=== PATIENT | female | born 1980 | race Caucasian/White ===

== ENCOUNTER 2018-03-06 16:45 | Emergency (ER) | payer BC, OTHER ==
--- NOTE | 2018-03-06 17:36 | EDM.PDOC ---
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 and had a sharp pain in her R lower back continued to work, not able to bend over took ibuprofen 800 mg at 8 AM, also APAP, still with pain, not able to work tonight no PCP, has gone to [facility] in [facility] on occasion states her hands are numb, that the pain shoots up her back and down her L leg, that her leg is numb denies previous injury to back other than when she rolled her 4-patel 05/31 - Related Data Allergies Allergy/AdvReac Type Severity Reaction Status Date / Time Penicillins Allergy Vomiting Verified 03/06/18 17:08 Home Meds: Home Meds Cyclobenzaprine HCl 10 mg PO TID PRN #15 tablet 03/06/18 [Rx] Past Medical History - Past Health History Medical/Surgical History: Denies Medical/Surgical History Gastrointestinal History: Reports: Other (See Below) Other Gastrointestinal History: stomach CA, Musculoskeletal History: Reports: Fracture, Other (See Below) Other Musculoskeletal History: fx R toe, R shoulder pain Neurological History: Reports: Migraines Endocrine/Metabolic History: Reports: Obesity/BMI 30+ Oncologic (Cancer) History: Reports: Leukemia, Other (See Below) Other Oncologic History: form of leukemia, stomach CA. Has portion of sm intestine & stomach removed. - Past Surgical History GI Surgical History: Reports: Colon, EGD, Small Bowel Social & Family History - Caffeine Use Caffeine Use: Reports: Coffee, Soda ED ROS GENERAL - Review of Systems Review Of Systems: See Below Constitutional: Reports: No Symptoms HEENT: Reports: No Symptoms Respiratory: Reports: No Symptoms Cardiovascular: Reports: No Symptoms Endocrine: Reports: No Symptoms GI/Abdominal: Reports: No Symptoms : Reports: No Symptoms Musculoskeletal: Reports: Back Pain Skin: Reports: No Symptoms Neurological: Reports: No Symptoms Psychiatric: Reports: No Symptoms Hematologic/Lymphatic: Reports: No Symptoms Immunologic: Reports: No Symptoms ED EXAM,LOWER BACK PAIN/INJURY - Physical Exam Exam: See Below Exam Limited By: No Limitations General Appearance: Alert, WD/WN, Mild Distress Respiratory/Chest: No Respiratory Distress Cardiovascular: Regular Rate, Rhythm Back Exam: Other (1+ tender at R iliac crest and R SI joint, no tender over l- spine, some guarding paraverterbral muscles without spasm, walks a little stiffly, 2+ DTRs at patella and Achilles b/l, great toe extension 5/5 b/l, LT intact b/l) Extremities: Normal Inspection, Normal Range of Motion, Non-Tender Neurological: Alert, Normal Mood/Affect, Normal Dorsiflexion, CN II-XII Intact, Normal Reflexes, No Motor/Sensory Deficits, Oriented x 3 Psychiatric: Normal Affect Skin Exam: Warm, Dry, Intact, Normal Color, No Rash Lymphatic: No Adenopathy Course - Orders/Labs/Meds Orders: Active Orders 24 hr Category Date Time Status Lumbar Spine 2 or 3V [CR] Stat Exams 03/06/18 17:29 Ordered Meds: Medications Discontinued Medications Generic Name Dose Route Start Last Admin Trade Name Evansq PRN Reason Stop Dose Admin Cyclobenzaprine HCl 10 mg 03/06/18 17:29 03/06/18 17:40 Flexeril PO 03/06/18 17:30 10 mg ONETIME ONE Administration Ketorolac Tromethamine 60 mg 03/06/18 17:29 03/06/18 17:38 Toradol IM 03/06/18 17:30 60 mg ONETIME ONE Administration - Re-Assessments/Exams Free Text/Narrative Re-Assessment/Exam: 03/06/18 18:37 XR l-spine shows minimal spurring, otherwise WNL injury actually to low back, no spine Departure - Departure Time of Disposition: 18:37 Disposition: Home, Self-Care 01 Condition: Good Clinical Impression: Low back strain - Discharge Information Prescriptions: Cyclobenzaprine HCl 10 mg PO TID PRN #15 tablet PRN Reason: Spasms Instructions: Low Back Strain, Low Back Sprain Rehab-SportsMed Referrals: PCP,None [Primary Care Provider] - Forms: ED Department Discharge, ED Return to Work/School Form Additional Instructions: For pain and inflammation, take ibuprofen 200 mg 4 tabs and acetaminophen 500 mg 2 tabs 3 times a day for 7 days, longer if needed. Use ice for 10 minutes 4 times a day for 2 days. For spasm, as needed, take cyclobenzaprine 10 mg 1 tab 3 times a day. Sleep on a firm mattress. Return to work in 4 days. See your doctor in 5 days. - My Orders Last 24 Hours: My Active Orders 03/06/18 17:29 Lumbar Spine 2 or 3V [CR] Stat - Assessment/Plan Last 24 Hours: My Active Orders 03/06/18 17:29 Lumbar Spine 2 or 3V [CR] Stat
[2018-03-06] MEDS: Ketorolac 60 MG/2 ML SDV IM ONE (17:38)
[2018-03-06] MEDS: Cyclobenzaprine 10 MG Tab PO ONE (17:40)
[2018-03-06 19:46] VITALS: BP 127/80
--- NOTE | 2018-03-08 11:18 | CR ---
INDICATION: Pain in right lower back, no history of trauma. LUMBOSACRAL SPINE: Three views of the lumbosacral spine were obtained. Overlying artifacts are noted. Mild hypertrophic degenerative changes are noted anteriorly off vertebral bodies L3-4, L4-5 but only minimally at L1-2. Vertebral body and disk heights appear to be fairly well-maintained. Bone density appeared to be normal. Pedicles appear to be intact. IMPRESSION: Essentially normal lumbosacral spine, except to note some mild osteoarthritic spurring. MTDD
== END 2018-03-06 18:47 | disposition home or self-care (01) ==
LOC: FB.ED 16:45
DX: S39.012A Strain of muscle, fascia and tendon of lower back, initial encounter (principal); E66.9 Obesity, unspecified; Y99.0 Civilian activity done for income or pay; Z88.0 Allergy status to penicillin; X50.9XXA Other and unspecified overexertion or strenuous movements or postures, initial encounter; Z68.41 Body mass index [BMI] 40.0-44.9, adult
CPT/HCPCS: 72100; 96372; 99283; A9270; J1885

== ENCOUNTER 2018-05-19 22:22 | Emergency (ER) | payer BC, OTHER ==
[2018-05-20 08:10] VITALS: BP 105/62
--- NOTE | 2018-05-20 10:17 | ER ---
DATE SEEN: 05/19/2018 HISTORY OF PRESENT ILLNESS: This 37-year-old woman comes in with history of "playing with a friend and messing around with a dog," and her left foot was half on the sidewalk, half on a rock, and rolled. She is not sure if she had inversion or eversion ankle sprain, but describes as apparently significant 6/10 intensity. She was overweight. Has moderate obesity, 200+ pounds. Works at [employer]. The event occurred at approximately 1600 hours today. She was unable to go back to work until she is cleared by [employer]. PAST MEDICAL HISTORY: Significant for fracture of right big toe, shoulder strain, left wrist sprain, backache, and low back strain. No diabetes, heart disease, high blood pressure, asthma, or other serious illnesses. CURRENT MEDICATIONS: None. She has used cyclobenzaprine in the past, not using it currently, which was for low back pain. ALLERGIES: To penicillin. SOCIAL HISTORY: Nonsmoker. PHYSICAL EXAMINATION: GENERAL: Alert, pleasant woman, in mild distress. VITAL SIGNS: See nurse's note. HEENT: PERRLA intact. Pharynx without abnormality. LUNGS: Clear, without rales, rhonchi, or wheezes. HEART: S1 and S2. No murmur. ABDOMEN: Soft. No guarding. No abdominal discomfort. Moderately increased abdominal girth. No overhang of fatty apron. EXTREMITIES: Left ankle marked tenderness at the lateral medial malleolus. Mild swelling. Distal fibula moderately tender with lower 20%. No crepitus. No deformity noted. Drawer sign negative. Palpation of 5th metatarsal nontender. The patient has pain with standing and walking. DIAGNOSTIC STUDIES: X-ray does not reveal a fracture. Two years ago, had a similar ankle sprain. It was negative at that time too. She has bony spurs noted on the calcaneus. ASSESSMENT: Left ankle sprain. PLAN: Ankle air splint. Gradually and progressively increase activity as tolerated. Off work for 2 days. Return to her doctor and be cleared on May 22. Elevate her ankle above her heart to decrease the swelling and minimize walking. The patient was seen at 1635 hours. /[id number] LS/MODL
--- NOTE | 2018-05-21 11:35 | CR ---
INDICATION: Left ankle sprain. LEFT ANKLE: Three views of the left ankle revealed soft tissue swelling overlying the lateral malleolus. Hypertrophic degenerative changes are noted at the lateral malleolus, suggesting mild degree of osteoarthritis, possibly posttraumatic type, with similar appearance at the medial malleolus also. There is very minimal asymmetry of the ankle mortise, being slightly wider in the lateral portion - the ankle mortise is slightly asymmetrical. This could be on the basis of lateral ligamental strain but should be correlated clinically. MRI or stress views may be helpful for further evaluation in that regard. A definite acute fracture or dislocation was not identified. Moderate sized plantar and posterior calcaneal spurs are also noted. Degenerative changes are also suggested at the calcaneocuboid and navicular multangular joints of mild degree. IMPRESSION: 1. No acute fracture or dislocation. 2. There may be a strain of lateral ligaments with very slight widening of the lateral ankle mortise. 3. 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 4. Calcaneal spurs. BERTRAM
== END 2018-05-19 23:45 | disposition home or self-care (01) ==
LOC: FB.ED 22:22
DX: S93.402A Sprain of unspecified ligament of left ankle, initial encounter (principal); X50.9XXA Other and unspecified overexertion or strenuous movements or postures, initial encounter; Z88.0 Allergy status to penicillin
CPT/HCPCS: 73610-LT; 99283

== ENCOUNTER 2019-07-31 13:43 | Emergency (ER) | payer BC ==
[2019-07-31] MEDS ORDERED: Sodium Chloride 0.9% 10 ML Syringe FLUSH PRN (14:17)
[2019-07-31] MEDS ORDERED: Sodium Chloride 0.9% 1,000 ML IV ONE (14:18)
[2019-07-31] MEDS ORDERED: Ketorolac 30 MG/ML SDV IVPUSH ONE (14:18)
--- NOTE | 2019-07-31 14:24 | EDM.PDOC ---
ED HPI GENERAL MEDICAL PROBLEM - General Chief Complaint: Back Pain or Injury Stated Complaint: POSSIBLE KIDNEY STONES Time Seen by Provider: 07/31/19 14:20 Source of Information: Reports: Patient History Limitations: Reports: No Limitations - History of Present Illness INITIAL COMMENTS - FREE TEXT/NARRATIVE: Patient presents with worsening non-radiating right lower back pain x 1 week. Denies injury, but may have slept on the couch "wrong" the day prior. No h/o kidney stones. Had N/V x 1 yesterday. Duration: Week(s): (1) - Related Data Allergies Allergy/AdvReac Type Severity Reaction Status Date / Time Penicillins Allergy Cannot Verified 07/31/19 15:48 Remember Past Medical History HEENT History: Reports: Impaired Vision Gastrointestinal History: Reports: Other (See Below) Other Gastrointestinal History: Stomach CA. Musculoskeletal History: Reports: Fracture, Other (See Below) Other Musculoskeletal History: Fx R toe. R shoulder pain. 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 - Past Surgical History GI Surgical History: Reports: Colon, EGD, Small Bowel Social & Family History - Family History Family Medical History: Noncontributory - Caffeine Use Caffeine Use: Reports: Coffee, Soda ED ROS GENERAL - Review of Systems Review Of Systems: ROS reveals no pertinent complaints other than HPI. ED EXAM,LOWER BACK PAIN/INJURY - Physical Exam Exam: See Below Exam Limited By: No Limitations General Appearance: Alert, WD/WN, No Apparent Distress Ears: Normal External Exam Nose: Normal Inspection Throat/Mouth: No Airway Compromise Head: Atraumatic, Normocephalic Neck: Full Range of Motion Respiratory/Chest: No Respiratory Distress, Lungs Clear, Normal Breath Sounds Cardiovascular: Regular Rate, Rhythm, No Murmur GI/Abdominal: Soft, Non-Tender, No Distention Back Exam: Paraspinal Tenderness (right lumbar). No: CVA Tenderness (R), CVA Tenderness (L) Extremities: Normal Range of Motion Neurological: Alert, Normal Mood/Affect Skin Exam: Warm, Dry Course - Vital Signs Last Recorded V/S: Last Vital Signs Temp 36.6 C 07/31/19 13:55 Pulse 66 07/31/19 13:55 Resp 18 07/31/19 13:55 BP 104/61 07/31/19 13:55 Pulse Ox 98 07/31/19 13:55 - Orders/Labs/Meds Orders: Active Orders 24 hr Category Date Time Status Abdomen Pelvis wo Cont [CT] Stat Exams 07/31/19 14:19 Taken Sodium Chloride 0.9% [Saline Flush] Med 07/31/19 14:17 Active 10 ml FLUSH ASDIRECTED PRN Saline Lock Insert [OM.PC] Routine Oth 07/31/19 14:17 Ordered Medication Orders Sodium Chloride (Saline Flush) 10 ml FLUSH ASDIRECTED PRN PRN Reason: Keep Vein Open Labs: Laboratory Tests 07/31/19 07/31/19 07/31/19 Range/Units 13:50 13:50 14:32 WBC 9.2 (4.5-12.0) X10-3/uL RBC 4.76 (3.23-5.20) x10(6)uL Hgb 14.8 (11.5-15.5) g/dL Hct 43.7 (30.0-51.3) % MCV 91.7 (80-96) fL MCH 31.0 (27.7-33.6) pg MCHC 33.8 (32.2-35.4) g/dL RDW 12.5 (11.5-15.5) % Plt Count 296 (125-369) X10(3)uL MPV 8.9 (7.4-10.4) fL Neut % (Auto) 61.0 (46-82) % Lymph % (Auto) 29.3 (13-37) % Sanborn % (Auto) 7.4 (4-12) % Eos % (Auto) 1 (1.0-5.0) % Baso % (Auto) 1 (0-2) % Neut # (Auto) 5.6 (1.6-8.3) # Lymph # (Auto) 2.7 (0.6-5.0) # Sanborn # (Auto) 0.7 (0.0-1.3) # Eos # (Auto) 0.1 (0.0-0.8) # Baso # (Auto) 0.1 (0.0-0.2) # Sodium (135-145) mmol/L Potassium (3.5-5.3) mmol/L Chloride (100-110) mmol/L Carbon Dioxide (21-32) mmol/L BUN (7-18) mg/dL Creatinine (0.55-1.02) mg/dL Est Cr Clr Drug Dosing Estimated GFR (MDRD) (>60) BUN/Creatinine Ratio (9-20) Glucose (80-116) mg/dL Calcium (8.6-10.2) mg/dL Total Bilirubin (0.1-1.3) mg/dL AST (5-25) IU/L ALT (12-36) U/L Alkaline Phosphatase (56-112) IU/L Total Protein (6.0-8.0) g/dL Albumin (3.5-5.2) g/dL Globulin g/dL Albumin/Globulin Ratio Urine Color Yellow (YELLOW) Urine Appearance Clear (CLEAR) Urine pH 5.0 (5.0-6.5) Ur Specific [place] 1.030 H (1.010-1.025) Urine Protein Negative (NEGATIVE) mg/dL Urine Glucose (UA) Normal (NORMAL) mg/dL Urine Ketones 15 H (NEGATIVE) mg/dL Urine Occult Blood Moderate H (NEGATIVE) Urine Nitrite Negative (NEGATIVE) Urine Bilirubin Negative (NEGATIVE) Urine Urobilinogen Normal (NEGATIVE) mg/dL Ur Leukocyte Esterase Negative (NEGATIVE) Urine RBC 5-10 H (0-5) Urine WBC 0-5 (0-5) Ur Squamous Epith Cells Moderate H (NS,R,O) Urine Bacteria Moderate H (NS) Hyaline Casts Moderate H (NS) Urine HCG, Qual Negative (NEGATIVE) 07/31/19 Range/Units 14:32 WBC (4.5-12.0) X10-3/uL RBC (3.23-5.20) x10(6)uL Hgb (11.5-15.5) g/dL Hct (30.0-51.3) % MCV (80-96) fL MCH (27.7-33.6) pg MCHC (32.2-35.4) g/dL RDW (11.5-15.5) % Plt Count (125-369) X10(3)uL MPV (7.4-10.4) fL Neut % (Auto) (46-82) % Lymph % (Auto) (13-37) % Sanborn % (Auto) (4-12) % Eos % (Auto) (1.0-5.0) % Baso % (Auto) (0-2) % Neut # (Auto) (1.6-8.3) # Lymph # (Auto) (0.6-5.0) # Sanborn # (Auto) (0.0-1.3) # Eos # (Auto) (0.0-0.8) # Baso # (Auto) (0.0-0.2) # Sodium 141 (135-145) mmol/L Potassium 4.1 (3.5-5.3) mmol/L Chloride 105 (100-110) mmol/L Carbon Dioxide 28 (21-32) mmol/L BUN 15 (7-18) mg/dL Creatinine 0.8 (0.55-1.02) mg/dL Est Cr Clr Drug Dosing TNP Estimated GFR (MDRD) > 60 (>60) BUN/Creatinine Ratio 18.8 (9-20) Glucose 96 (80-116) mg/dL Calcium 9.0 (8.6-10.2) mg/dL Total Bilirubin 0.3 (0.1-1.3) mg/dL AST 22 (5-25) IU/L ALT 32 (12-36) U/L Alkaline Phosphatase 76 (56-112) IU/L Total Protein 7.3 (6.0-8.0) g/dL Albumin 3.7 (3.5-5.2) g/dL Globulin 3.6 g/dL Albumin/Globulin Ratio 1.0 Urine Color (YELLOW) Urine Appearance (CLEAR) Urine pH (5.0-6.5) Ur Specific [place] (1.010-1.025) Urine Protein (NEGATIVE) mg/dL Urine Glucose (UA) (NORMAL) mg/dL Urine Ketones (NEGATIVE) mg/dL Urine Occult Blood (NEGATIVE) Urine Nitrite (NEGATIVE) Urine Bilirubin (NEGATIVE) Urine Urobilinogen (NEGATIVE) mg/dL Ur Leukocyte Esterase (NEGATIVE) Urine RBC (0-5) Urine WBC (0-5) Ur Squamous Epith Cells (NS,R,O) Urine Bacteria (NS) Hyaline Casts (NS) Urine HCG, Qual (NEGATIVE) Meds: Medications Generic Name Dose Route Start Last Admin Trade Name Freq PRN Reason Stop Dose Admin Sodium Chloride 10 ml 07/31/19 14:17 Saline Flush FLUSH ASDIRECTED PRN Keep Vein Open Discontinued Medications Generic Name Dose Route Start Last Admin Trade Name Adolfo PRN Reason Stop Dose Admin Sodium Chloride 1,000 mls @ 999 mls/hr 07/31/19 14:18 07/31/19 14:50 Normal Saline IV 07/31/19 15:18 999 mls/hr .BOLUS ONE Administration Ketorolac Tromethamine 30 mg 07/31/19 14:18 07/31/19 14:58 Toradol IVPUSH 07/31/19 14:19 30 mg ONETIME ONE Administration - Radiology Interpretation Free Text/Narrative:: CT Abd/Pelvis w/o contrast: No acute abdominal or pelvic process. No nephrolithiasis, ureterolithiasis or hydronephrosis. - Re-Assessments/Exams Free Text/Narrative Re-Assessment/Exam: 07/31/19 16:22 Symptoms improved after Toradol. Departure - Departure Time of Disposition: 16:22 Disposition: Home, Self-Care 01 Condition: Good Clinical Impression: Lumbago Qualifiers: Chronicity: acute Back pain laterality: right Sciatica presence: without sciatica Qualified Code(s): M54.5 - Low back pain - Discharge Information *PRESCRIPTION DRUG MONITORING PROGRAM REVIEWED*: No *COPY OF PRESCRIPTION DRUG MONITORING REPORT IN PATIENT AUGIE: Not Applicable Instructions: Muscle Strain, [id number] Referrals: PCP,Not In Area [Ordering Only Provider] - Forms: ED Department Discharge, ED Return to Work/School Form Additional Instructions: Rest, take Ibuprofen 600mg every 6 hours as needed to control pain. Follow up with your primary physician in 2-3 days if symptoms don't improve. - My Orders Last 24 Hours: My Active Orders 07/31/19 14:17 Sodium Chloride 0.9% [Saline Flush] 10 ml FLUSH ASDIRECTED PRN Saline Lock Insert [OM.PC] Routine 07/31/19 14:19 Abdomen Pelvis wo Cont [CT] Stat - Assessment/Plan Last 24 Hours: My Active Orders 07/31/19 14:17 Sodium Chloride 0.9% [Saline Flush] 10 ml FLUSH ASDIRECTED PRN Saline Lock Insert [OM.PC] Routine 07/31/19 14:19 Abdomen Pelvis wo Cont [CT] Stat
[2019-07-31 15:18] VITALS: BP 104/61; PULSE 66
== END 2019-07-31 16:35 | disposition home or self-care (01) ==
LOC: FB.ED 13:43
DX: M54.5 Low back pain (principal); E66.9 Obesity, unspecified; Z88.0 Allergy status to penicillin; Z68.41 Body mass index [BMI] 40.0-44.9, adult; Z85.028 Personal history of other malignant neoplasm of stomach; Z90.49 Acquired absence of other specified parts of digestive tract
CPT/HCPCS: 36415; 74176; 80053; 81001; 81025; 85025; 96361; 96374; 99284; J1885; J7030

== ENCOUNTER 2020-01-25 21:26 | Emergency (ER) | payer BC ==
[2020-01-25 21:40] VITALS: BP 133/80; PULSE 76
--- NOTE | 2020-01-25 21:50 | EDM.PDOC ---
ED HPI GENERAL MEDICAL PROBLEM - General Chief Complaint: Upper Extremity Injury/Pain Stated Complaint: ARM PAIN Time Seen by Provider: 01/25/20 21:45 Source of Information: Reports: Patient History Limitations: Reports: No Limitations - History of Present Illness INITIAL COMMENTS - FREE TEXT/NARRATIVE: Patient presented to the ED because of left shoulder and arm pain. She has bee using her LUE a lot because she had a recent surgey on her left shoulder. She is taking tylenol without relief. Left Shoulder Pain Score (Numeric/FACES): 9 - Related Data Allergies Allergy/AdvReac Type Severity Reaction Status Date / Time Penicillins Allergy Cannot Verified 07/31/19 15:48 Remember Home Meds: Home Meds Escitalopram Oxalate 10 mg PO DAILY 07/31/19 [History] Levothyroxine Sodium [Levo-T] 50 mcg PO DAILY 07/31/19 [History] Naltrexone HCl [Revia] 50 mg PO DAILY 07/31/19 [History] Norethindrone Acetate 5 mg PO DAILY 07/31/19 [History] buPROPion HCl [Wellbutrin Xl] 150 mg PO DAILY 07/31/19 [History] Cyclobenzaprine [Flexeril] 10 mg PO Q8H PRN #30 tab 01/25/20 [Rx] Ibuprofen 800 mg PO Q8H PRN #30 tablet 01/25/20 [Rx] Past Medical History HEENT History: Reports: Impaired Vision Gastrointestinal History: Reports: Other (See Below) Other Gastrointestinal History: Stomach CA. Musculoskeletal History: Reports: Fracture, Other (See Below) Other Musculoskeletal History: Fx R toe. R shoulder pain. 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 - Past Surgical History GI Surgical History: Reports: Colon, EGD, Small Bowel Social & Family History - Family History Family Medical History: Noncontributory - Caffeine Use Caffeine Use: Reports: Coffee, Soda Review of Systems - Review of Systems Review Of Systems: See Below Constitutional: Reports: No Symptoms Ears: Reports: No Symptoms Nose: Reports: No Symptoms Mouth/Throat: Reports: No Symptoms Respiratory: Reports: No Symptoms Cardiovascular: Reports: No Symptoms GI/Abdominal: Reports: No Symptoms Genitourinary: Reports: No Symptoms Musculoskeletal: Reports: Shoulder Pain, Arm Pain Skin: Reports: No Symptoms ED EXAM, GENERAL - Physical Exam Exam: See Below Exam Limited By: No Limitations General Appearance: Alert, No Apparent Distress Ears: Normal External Exam Nose: Normal Inspection, Normal Mucosa Throat/Mouth: Normal Inspection, Normal Lips Head: Atraumatic, Normocephalic Neck: Normal Inspection, Supple, Non-Tender Respiratory/Chest: No Respiratory Distress, Lungs Clear, Normal Breath Sounds Cardiovascular: Normal Peripheral Pulses, Regular Rate, Rhythm, No Edema, No JVD , No Murmur, No Rub GI/Abdominal: Normal Bowel Sounds, Soft, Non-Tender Extremities: Normal Inspection, Normal Range of Motion, Other (tenderness over the left shoulder and deltoi area) Course - Vital Signs Text/Narrative:: toradol 60 mg IM x1 flexeril 10 mg po x1 Last Recorded V/S: Last Vital Signs Temp 37.1 C 01/25/20 21:38 Pulse 76 01/25/20 21:38 Resp 18 01/25/20 21:38 BP 133/80 01/25/20 21:38 Pulse Ox 99 01/25/20 21:38 - Orders/Labs/Meds Meds: Medications Discontinued Medications Generic Name Dose Route Start Last Admin Trade Name Freq PRN Reason Stop Dose Admin Cyclobenzaprine HCl 10 mg 01/25/20 21:53 Flexeril PO 01/25/20 21:54 ONETIME ONE Ketorolac Tromethamine 60 mg 01/25/20 21:53 Toradol IM 01/25/20 21:54 ONETIME ONE Departure - Departure Time of Disposition: 21:50 Disposition: Home, Self-Care 01 Condition: Good Clinical Impression: Muscle strain - Discharge Information Prescriptions: Cyclobenzaprine [Flexeril] 10 mg PO Q8H PRN #30 tab PRN Reason: Spasms Ibuprofen 800 mg PO Q8H PRN #30 tablet PRN Reason: Pain Instructions: Muscle Strain, [id number] Referrals: PCP,Not In Area [Primary Care Provider] - Forms: ED Department Discharge Additional Instructions: please read discharge instructions on muscle strain apply ice or heat whichever makes the pain feel better take the following medicines all at the same time: Flexeril 10 mg with ibuprofen 800 mg and tylenol 1000 mg every 8 hours as needed for pain shoulder range of motion exercise as instructed follow up as needed Sepsis Event Note - Evaluation Sepsis Screening Result: No Definite Risk - Focused Exam Vital Signs: Vital Signs Temp Pulse Resp BP Pulse Ox 01/25/20 21:38 37.1 C 76 18 133/80 99 Date Exam was Performed: 01/25/20 Time Exam was Performed: 21:57
[2020-01-25] MEDS ORDERED: Ketorolac 60 MG/2 ML SDV IM ONE (21:53)
[2020-01-25] MEDS ORDERED: Cyclobenzaprine 10 MG Tab PO ONE (21:53)
== END 2020-01-25 22:05 | disposition home or self-care (01) ==
LOC: FB.ED 21:26
DX: S46.912A Strain of unspecified muscle, fascia and tendon at shoulder and upper arm level, left arm, initial encounter (principal); Z88.0 Allergy status to penicillin; Z79.899 Other long term (current) drug therapy; E66.9 Obesity, unspecified; Z68.41 Body mass index [BMI] 40.0-44.9, adult; X50.9XXA Other and unspecified overexertion or strenuous movements or postures, initial encounter
CPT/HCPCS: 96372; 99283; A9270-GY; J1885

== ENCOUNTER 2021-08-20 09:32 | Emergency (ER) | payer BC ==
--- NOTE | 2021-08-20 10:57 | EDM.PDOC ---
ED HPI GENERAL MEDICAL PROBLEM - General Chief Complaint: Respiratory Problem Stated Complaint: COVID Time Seen by Provider: 08/20/21 10:25 Source of Information: Reports: Patient History Limitations: Reports: No Limitations - History of Present Illness INITIAL COMMENTS - FREE TEXT/NARRATIVE: c/o cough as [place], malaise, mylgias x 1d, sxs are mild has had COVID vax no fever pt and work at [employer], tested positive for COVID 1w ago, pt has been quarantining at home, had planned to return to work in 2d [employer] has [address] employees who work elbow to elbow, there is a mandatory mask policy no h/o asthma pt would like to return to work altho advised she will need to be out a week if COVID test is positive, may return to work if COVID test is negative pt also exposed to a child with COVID - Related Data Allergies Allergy/AdvReac Type Severity Reaction Status Date / Time Penicillins Allergy Cannot Verified 07/31/19 15:48 Remember Home Meds: Home Meds Escitalopram Oxalate 10 mg PO DAILY 07/31/19 [History] Levothyroxine Sodium [Levo-T] 50 mcg PO DAILY 07/31/19 [History] Naltrexone HCl [Revia] 50 mg PO DAILY 07/31/19 [History] Norethindrone Acetate 5 mg PO DAILY 07/31/19 [History] buPROPion HCL [Wellbutrin Xl] 150 mg PO DAILY 07/31/19 [History] Cyclobenzaprine [Flexeril] 10 mg PO Q8H PRN #30 tab 01/25/20 [Rx] Ibuprofen 800 mg PO Q8H PRN #30 tablet 01/25/20 [Rx] Past Medical History HEENT History: Reports: Impaired Vision Gastrointestinal History: Reports: Other (See Below) Other Gastrointestinal History: Stomach CA. Musculoskeletal History: Reports: Fracture, Other (See Below) Other Musculoskeletal History: Fx R toe. R shoulder pain. 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 - Infectious Disease History Infectious Disease History: Reports: None - Past Surgical History GI Surgical History: Reports: Colon, EGD, Small Bowel Social & Family History - Family History Family Medical History: No Pertinent Family History - Caffeine Use Caffeine Use: Reports: Coffee, Soda ED ROS GENERAL - Review of Systems Review Of Systems: See Below Constitutional: Reports: Malaise HEENT: Reports: No Symptoms Respiratory: Reports: Cough Cardiovascular: Reports: No Symptoms Endocrine: Reports: No Symptoms GI/Abdominal: Reports: No Symptoms : Reports: No Symptoms Musculoskeletal: Reports: Muscle Pain Skin: Reports: No Symptoms Neurological: Reports: No Symptoms Psychiatric: Reports: No Symptoms Hematologic/Lymphatic: Reports: No Symptoms Immunologic: Reports: No Symptoms ED EXAM, GENERAL - Physical Exam Exam: See Below Exam Limited By: No Limitations General Appearance: Alert, WD/WN, No Apparent Distress, Other (alert, pleasant, non ill, no cough observed) Eye Exam: Bilateral Eye: Conjunctival Injection (slight injection) Nose: Normal Inspection, Normal Mucosa, No Blood Throat/Mouth: Normal Inspection, Normal Lips, Normal Teeth, Normal Gums, Normal Oropharynx, Normal Voice, No Airway Compromise Head: Atraumatic, Normocephalic Neck: Normal Inspection, Supple, Non-Tender, Full Range of Motion. No: Lymphadenopathy (R), Lymphadenopathy (L) Respiratory/Chest: No Respiratory Distress, Lungs Clear, Normal Breath Sounds, No Accessory Muscle Use, Chest Non-Tender, Other (good AE) Cardiovascular: Regular Rate, Rhythm, No Edema, No Gallop, No Murmur, No Rub GI/Abdominal: Soft, Non-Tender, No Distention Back Exam: Normal Inspection, Full Range of Motion. No: CVA Tenderness (R), CVA Tenderness (L) Extremities: Normal Inspection, Normal Range of Motion, Non-Tender, No Pedal Edema Neurological: Alert, Oriented, CN II-XII Intact, Normal Cognition, No Motor/Sensory Deficits Psychiatric: Normal Affect, Normal Mood Skin Exam: Warm, Dry, Intact, Normal Color, No Rash Lymphatic: No Adenopathy Course - Orders/Labs/Meds Orders: Active Orders 24 hr Category Date Time Status CORONAVIRUS (COVID19) [facility]-NR Routine Lab 08/20/21 10:22 Received Departure - Departure Time of Disposition: 10:52 Disposition: Home, Self-Care 01 Condition: Good Clinical Impression: Cough, Exposure to COVID-19 virus - Discharge Information *PRESCRIPTION DRUG MONITORING PROGRAM REVIEWED*: Not Applicable *COPY OF PRESCRIPTION DRUG MONITORING REPORT IN PATIENT [place]: Not Applicable Instructions: Symptoms of COVID-19 - [facility] (12/06/2020), 3 Dent Steps to Take While Waiting for Your COVID-19 Test Result - [facility] (04/22/2021) Referrals: PCP,None [Primary Care Provider] - Forms: ED Department Discharge, ED Return to Work/School Form Additional Instructions: No work for one week unless your COVID test is negative. Quarantine at home in the meantime. Take acetaminophen 325 mg 3 tabs and ibuprofen 200 mg 3 tabs 4 times a day as needed for pain and fever. - My Orders Last 24 Hours: My Active Orders 08/20/21 10:22 CORONAVIRUS (COVID19) [facility] Routine - Assessment/Plan Last 24 Hours: My Active Orders 08/20/21 10:22 CORONAVIRUS (COVID19) [facility]-NR Routine
[2021-08-20 21:38] VITALS: BP 111/59; PULSE 74
[2021-08-22 17:05] LABS: CORNONAVIRUS (COVID19) CSH-NRL Negative (Negative)
== END 2021-08-20 11:18 | disposition home or self-care (01) ==
LOC: FB.ED 09:32
DX: R05.9 Cough, unspecified (principal); E66.9 Obesity, unspecified; Z68.33 Body mass index [BMI] 33.0-33.9, adult; Z88.0 Allergy status to penicillin; Z79.899 Other long term (current) drug therapy; Z20.822 Contact with and (suspected) exposure to COVID-19
CPT/HCPCS: 99284; U0003

== ENCOUNTER 2021-08-29 19:51 | Emergency (ER) | payer BC ==
--- NOTE | 2021-08-29 20:12 | EDM.PDOC ---
ED HPI GENERAL MEDICAL PROBLEM - General Stated Complaint: COVID SYMPTOMS Time Seen by Provider: 08/29/21 20:00 Source of Information: Reports: Patient History Limitations: Reports: No Limitations - History of Present Illness INITIAL COMMENTS - FREE TEXT/NARRATIVE: Patient was exposed to her who tested positive for Covid 2 weeks ago. She started to have headache,sore throat, cough and cold 2 weeks ago and is getting worse. There is no associated dyspnea or chest pain Her Covid Test was negative 1 week ago. Generalized Pain Score (Numeric/FACES): 1 - Related Data Allergies Allergy/AdvReac Type Severity Reaction Status Date / Time Penicillins Allergy Hives Verified 08/29/21 21:05 Home Meds: Home Meds buPROPion HCL [Wellbutrin Xl] 150 mg PO DAILY 07/31/19 [History] Ibuprofen 800 mg PO Q8H PRN #30 tablet 01/25/20 [Rx] Liraglutide [Saxenda] 3 mg SQ BEDTIME 08/29/21 [History] Meloxicam 15 mg PO DAILY PRN 08/29/21 [History] Past Medical History HEENT History: Reports: Impaired Vision Gastrointestinal History: Reports: Other (See Below) Other Gastrointestinal History: Stomach CA. Musculoskeletal History: Reports: Fracture, Other (See Below) Other Musculoskeletal History: Fx R toe. R shoulder pain. 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 - Infectious Disease History Infectious Disease History: Reports: None - Past Surgical History GI Surgical History: Reports: Colon, EGD, Small Bowel Social & Family History - Family History Family Medical History: No Pertinent Family History - Caffeine Use Caffeine Use: Reports: None ED ROS GENERAL - Review of Systems Review Of Systems: See Below Constitutional: Reports: Chills HEENT: Reports: Rhinitis Respiratory: Reports: Cough Cardiovascular: Reports: No Symptoms Endocrine: Reports: No Symptoms GI/Abdominal: Reports: No Symptoms : Reports: No Symptoms Musculoskeletal: Reports: No Symptoms Skin: Reports: No Symptoms Neurological: Reports: No Symptoms ED EXAM, GENERAL - Physical Exam Exam: See Below Exam Limited By: No Limitations General Appearance: Alert, No Apparent Distress Ears: Normal External Exam, Normal Canal Nose: Normal Inspection, Normal Mucosa, No Blood Throat/Mouth: Normal Inspection, Normal Lips, Normal Teeth, Normal Oropharynx, Normal Voice Head: Atraumatic, Normocephalic Neck: Normal Inspection, Supple, Non-Tender, Full Range of Motion Respiratory/Chest: No Respiratory Distress, Lungs Clear, Normal Breath Sounds, No Accessory Muscle Use, Chest Non-Tender Cardiovascular: Normal Peripheral Pulses, Regular Rate, Rhythm, No Edema Course - Vital Signs Text/Narrative:: Covid test-Neg Flu A/B-Neg Last Recorded V/S: Last Vital Signs Temp 36.6 C 08/29/21 19:51 Pulse 89 08/29/21 19:51 Resp 20 08/29/21 19:51 BP 129/79 08/29/21 19:51 Pulse Ox 97 08/29/21 19:51 - Orders/Labs/Meds Orders: Active Orders 24 hr Category Date Time Status Isolation [COMM] Routine Oth 08/29/21 19:54 Ordered Labs: Laboratory Tests 08/29/21 Range/Units 19:55 SARS-CoV-2 RNA ([facility]) Negative (NEGATIVE) Departure - Departure Time of Disposition: 19:30 Disposition: Home, Self-Care 01 Condition: Good Clinical Impression: Viral illness - Discharge Information Instructions: Viral Illness, Adult Additional Instructions: Please read discharge instructions on viral illness Increase oral fluids Take ibuprofen 800 mg with tylenol 1000 mg every 8 hours as needed for body ache, fever. Follow up as needed Sepsis Event Note (ED) - Focused Exam Vital Signs: Vital Signs Temp Pulse Resp BP Pulse Ox 08/29/21 19:51 36.6 C 89 20 129/79 97 - My Orders Last 24 Hours: My Active Orders 08/29/21 19:54 Isolation [COMM] Routine - Assessment/Plan Last 24 Hours: My Active Orders 08/29/21 19:54 Isolation [COMM] Routine
[2021-08-29 21:49] VITALS: BP 139/73; PULSE 84
== END 2021-08-29 21:34 | disposition home or self-care (01) ==
LOC: FB.ED 19:51
DX: B34.9 Viral infection, unspecified (principal); E66.9 Obesity, unspecified; Z68.36 Body mass index [BMI] 36.0-36.9, adult; Z88.0 Allergy status to penicillin; Z79.899 Other long term (current) drug therapy; Z20.822 Contact with and (suspected) exposure to COVID-19
CPT/HCPCS: 87804; 87804-59; 99283; U0002